=== PATIENT | male | born 1975 ===

== ENCOUNTER 2018-06-14 18:02 | Emergency (ER) | payer OTHER ==
--- NOTE | 2018-06-14 19:28 | ER Document Report ---
ED Medical Screen (RME) - General Chief Complaint: Abdominal Pain Stated Complaint: LIGHTHEADED/NAUSEA Time Seen by Provider: 06/14/18 19:25 Mode of Arrival: Ambulatory Information source: Patient Notes: 43-year-old male presented to ED for complaint of right flank/abdominal pain with some nausea no vomiting for the past 1-1/2 weeks. He states he has been having bowel movements normally and had one after he got up and took a shower today. Patient is alert and oriented respirations regular and unlabored answering all questions appropriately walks with a even steady gait. Does have tenderness to palpation to the left upper and lower abdomen. Lungs are clear abdomen is soft and bowel sounds are active. I have greeted and performed a rapid initial assessment of this patient. A com prehensive ED assessment and evaluation of the patient, analysis of test results and completion of medical decision making process will be conducted by an additional ED providers. TRAVEL OUTSIDE OF THE [place] IN LAST 30 DAYS: No - Related Data Allergies/Adverse Reactions: No Known Allergies Allergy (Unverified 06/14/18 18:11) Physical Exam - Vital signs Vitals: Temp Pulse Resp BP Pulse Ox 98.1 F 53 L 15 121/83 99 06/14/18 18:39 06/14/18 18:39 06/14/18 18:39 06/14/18 18:39 06/14/18 18:39 Course - Vital Signs Vital signs: Temp Pulse Resp BP Pulse Ox 98.1 F 53 L 15 121/83 99 06/14/18 18:39 06/14/18 18:39 06/14/18 18:39 06/14/18 18:39 06/14/18 18:39
[2018-06-14 20:41] LABS: APPEARANCE,URINE CLEAR; BILIRUBIN,URINE NEGATIVE (NEGATIVE); COLOR,URINE YELLOW; GLUCOSE, URINE NEGATIVE (NEGATIVE); KETONES,URINE NEGATIVE (NEGATIVE); LEUKOCYTE ESTERASE,URINE NEGATIVE (NEGATIVE); NITRITE,URINE NEGATIVE (NEGATIVE); PROTEIN,URINE NEGATIVE (NEGATIVE); URINE SPECIFIC GRAVITY 1.011; UROBILINOGEN,URINE NEGATIVE mg/dL (<2.0)
--- NOTE | 2018-06-14 21:08 | RADIOLOGY REPORT (SQ) ---
CT ABDOMEN WITHOUT IV CONTRAST HISTORY: Right flank pain. COMPARISON: None. TECHNIQUE: CT scan of the abdomen and pelvis without IV contrast. This exam was performed according to our departmental dose-optimization program, which includes automated exposure control, adjustment of the mA and/or kV according to patient size and/or use of iterative reconstruction technique. FINDINGS: Lung bases are clear. No pleural or pericardial effusions are seen. Liver, gallbladder, spleen, pancreas, adrenal glands, and kidneys are unremarkable. No obstructing urinary stones or hydronephrosis. Prostate gland contains coarse calcifications. The urinary bladder is unremarkable. No small bowel obstruction. The appendix is not well-visualized but there are no inflammatory changes in the right lower quadrant. No evidence of diverticulitis. No intraperitoneal free fluid or free air is seen. The aorta is normal caliber. No body wall hernia is seen. There are no acute osseous findings. IMPRESSION: No acute intra-abdominal findings.
[2018-06-14 21:17] LABS: ABSOLUTE EOSINOPHILS # (AUTO) 0.1 10^3/uL (0.0-0.6); ABSOLUTE LYMPHOCYTES (AUTO) 2.4 10^3/uL (0.5-4.7); ABSOLUTE MONOCYTES (AUTO) 0.6 10^3/uL (0.1-1.4); ABSOLUTE NEUT (AUTO) 4.8 10^3/uL (1.7-8.2); BASOPHILS % (AUTO) 0.4 % (0-2); EOSINOPHILS % (AUTO) 1.9 % (0-6); HEMATOCRIT 47.4 % (37.9-51.0); HEMOGLOBIN 16.3 g/dL (13.5-17.0); MEAN CORPUSCULAR HEMOGLOBIN 30.4 pg (27.0-33.4); MEAN CORPUSCULAR HGB CONC 34.3 g/dL (32.0-36.0); MEAN CORPUSCULAR VOLUME 89 fl (80-97); MONOCYTES % (AUTO) 7.2 % (3-13); PLATELET COUNT 193 10^3/uL (150-450); RED BLOOD COUNT 5.36 10^6/uL (4.35-5.55); SEGMENTED NEUTROPHILS % (AUTO) 60.5 % (42-78); TOTAL CELLS COUNTED % (AUTO) 100 %
[2018-06-14 21:33] LABS: ALANINE AMINOTRANSFERASE 44 U/L (21-72); ALBUMIN 4.8 g/dL (3.5-5.0); ALKALINE PHOSPHATASE 90 U/L (38-126); ANION GAP 5 (5-19); ASPARTATE AMINO TRANSFERASE 23 U/L (17-59); BILIRUBIN,DIRECT 0.1 mg/dL (0.0-0.4); BILIRUBIN,TOTAL 0.6 mg/dL (0.2-1.3); BLOOD UREA NITROGEN 11 mg/dL (7-20); CALCIUM 9.6 mg/dL (8.4-10.2); CARBON DIOXIDE 32 mmol/L (22-30); CHLORIDE 104 mmol/L (98-107); GLUCOSE 102 mg/dL (75-110); LIPASE 51.5 U/L (23-300); POTASSIUM 4.4 mmol/L (3.6-5.0); SODIUM 141.4 mmol/L (137-145); TOTAL PROTEIN 7.2 g/dL (6.3-8.2)
--- NOTE | 2018-06-15 00:15 | ER Document Report ---
ED GI/ - General Chief Complaint: Abdominal Pain Stated Complaint: LIGHTHEADED/NAUSEA Time Seen by Provider: 06/14/18 19:25 Primary Care Provider: PREMA SPRAGUE [Primary Care Provider] - Follow up as needed Mode of Arrival: Ambulatory Notes: Patient is a 43 year old male that comes to the Emergency Department for chief complaint of abdominal pain. He states pain is mainly on the right mid to lower abdomen, occasionally radiates down to the groin, intermittent, this has been present intermittently for about 2 months, seems worse over the past couple of days. He reports intermittent nausea. Occasionally worse with eating but at other times not. Reports normal bowel movements although he usually only has one every or 2 or 3 days. Denies fever or chills, injury, surgery. He denies t esticular pain, discharge, dysuria. He states occasionally he will get randomly lightheaded but this is rare. Only past medical history reported is anxiety and PTSD. TRAVEL OUTSIDE OF THE [place] IN LAST 30 DAYS: No - Related Data Allergies/Adverse Reactions: No Known Allergies Allergy (Unverified 06/14/18 18:11) Past Medical History - General Information source: Patient - Social History Smoking Status: Former Smoker Chew tobacco use (# tins/day): No Frequency of alcohol use: Occasional Drug Abuse: None Lives with: Spouse/Significant other Family History: Reviewed & Not Pertinent Patient has suicidal ideation: No Patient has homicidal ideation: No Renal/ Medical History: Denies: Hx Peritoneal Dialysis Psychiatric Medical History: Reports: Hx Depression - anxiety Surgical Hx: Negative - Immunizations Immunizations up to date: Yes Hx Diphtheria, Pertussis, Tetanus Vaccination: Yes Review of Systems - Review of Systems Constitutional: No symptoms reported EENT: No symptoms reported Cardiovascular: No symptoms reported Respiratory: No symptoms reported Gastrointestinal: See HPI Genitourinary: No symptoms reported Male Genitourinary: No symptoms reported Musculoskeletal: No symptoms reported Skin: No symptoms reported Hematologic/Lymphatic: No symptoms reported Neurological/Psychological: No symptoms reported Physical Exam - Vital signs Vitals: Temp Pulse Resp BP Pulse Ox 98.1 F 53 L 15 121/83 99 06/14/18 18:39 06/14/18 18:39 06/14/18 18:39 06/14/18 18:39 06/14/18 18:39 - Notes Notes: GENERAL: Alert, interacts well. No acute distress. HEAD: Normocephalic, atraumatic. EYES: Pupils equal, round, and reactive to light. Extraocular movements intact. ENT: Oral mucosa moist, tongue midline. Oropharynx unremarkable. Airway patent. Nares patent, no nasal septal hematoma, TM's intact. NECK: Full range of motion. Supple. Trachea midline. LUNGS: Clear to auscultation bilaterally, no wheezes, rales, or rhonchi. No respiratory distress. HEART: Regular rate and rhythm. No murmur ABDOMEN: Very minimal generalized mid abdominal tenderness and lower abdominal tenderness. This is not reproducible or consistent. No specific McBurney's tenderness. No guarding, swelling, rigidity, or rebound tenderness. GENITOURINARY: Deferred EXTREMITIES: Moves all 4 extremities spontaneously. No edema, normal radial and dorsalis pedis pulses bilaterally. No cyanosis. BACK: no cervical, thoracic, lumbar midline tenderness. No saddle anesthesia, normal distal neurovascular exam. NEUROLOGICAL: Alert and oriented x3. Normal speech. [cranial nerves II through XII grossly intact]. PSYCH: Normal affect, normal mood. SKIN: Warm, dry, normal turgor. No rashes or lesions noted. Course - Re-evaluation Re-evalutation: Patient is very healthy in appearance, very well-appearing, alert, no current complaints. He has very minimal generalized tenderness over the abdomen. Symptoms have been present for about 2 months. I did review triage workup including CBC, chemistry, urinalysis, and CAT scan without contrast, these are all completely unremarkable. Suspect gastrointestinal source of his symptoms based on his location and intermittent vague symptoms. Very low suspicion of acute abdomen. Does not appear to be infectious. Discussed treatment with Bentyl, stool softener because of infrequent bowel movements, gastroneurology follow-up, and return precautions with patient and significant other at bedside. They state understanding and agreement. - Vital Signs Vital signs: Temp Pulse Resp BP Pulse Ox 98.4 F 54 L 15 115/74 99 06/15/18 00:21 06/15/18 00:21 06/15/18 00:21 06/15/18 00:21 06/15/18 00:21 - Laboratory Result Diagrams: 06/14/18 20:58 06/14/18 20:58 Laboratory results interpreted by me: 06/14/18 20:58 Carbon Dioxide 32 H Discharge - Discharge Clinical Impression: Lower abdominal pain Condition: Stable Disposition: HOME, SELF-CARE Additional Instructions: Your complete blood counts, blood chemistries, urinalysis, and CAT scan do not show any concerning findings at this time. Your symptoms appear to be coming from your bowel, probably the colon, I recommend the Bentyl antispasmodic and the Colace stool softener as prescribed for the next several days. Continue your current diet. If symptoms persist, please follow-up with gastroneurology follow-up, see your primary care, see referral. Return if you worsen including swelling of the abdomen, shaking chills or fever, vomiting, severe worsening pain, bloody stools, or any other concerning or worsening symptoms. Prescriptions: Dicyclomine HCl [Bentyl 20 mg Tablet] 20 mg PO QID PRN #20 tablet PRN Reason: Docusate Sodium [Colace 100 mg Capsule] 100 mg PO ASDIR PRN #30 capsule PRN Reason: Forms: Return to Work Referrals: [facility] [Primary Care Provider] - Follow up as needed
[2018-06-15 00:27] VITALS: BP 115/74
== END 2018-06-15 00:22 | disposition home or self-care (01) ==
LOC: ER 18:02
DX: R10.30 Lower abdominal pain, unspecified (principal); R11.0 Nausea; R42 Dizziness and giddiness
CPT/HCPCS: 36415; 76380; 80053; 81001; 83690; 85025; 99284